=== PATIENT | male | born 1990 | race Caucasian/White ===

== ENCOUNTER 2017-09-16 08:51 | Emergency (ER) | payer OTHER ==
[~2017-09-16 08:51] MED LIST: CIPR2.5D14 OP; CLON-327 PO; LAMO100T5 PO; QUET25TA PO
[2017-09-16] MEDS ORDERED: KETOROLAC 15 MG/ML VIAL IVP ONE (09:15)
[2017-09-16] MEDS ORDERED: diphenhydrAMINE 50 MG/ML VIAL IVP ONE (09:15)
[2017-09-16] MEDS ORDERED: METOCLOPRAMIDE 10 MG/2 ML SDV IVP ONE (09:15)
--- NOTE | 2017-09-16 09:35 | ER Report ---
History and Physical Time Seen By MD: 09:12 Hx. of Stated Complaint: PATIENT STATES THAT ABOUT 0830 THE PATIENT HAD A HEAD ACHE AND THAT HIS LEFT EYE "ACTED LIKE SOMEONE SHINED A LIGHT IN IT"; PATIENT TOOK SOME ASPRIN AND THEN HIS LEFT ARM WENT NUMB WELL HIS MOUTH. HPI/ROS CHIEF COMPLAINT: headache HISTORY OF PRESENT ILLNESS: Pt had sudden onset of crump at 0830 while working on a car; was not significantly exerting himself and not exposed to fumes. CRUMP began behind l eye; pt also c/o l arm numbness that has resolved and l side of tongue numbness that persists. Pt has sig hx of migraines, TBI in 2009-, but as far as he knows, has not had imaging of head. States this is different from migraines. CRUMP is gradually improving, but persists at 7/10. Worse with light, no sig relieving factors REVIEW OF SYSTEMS: Constitutional: No fever, no chills. Eyes: No discharge. ENT: No sore throat. Cardiovascular: No chest pain, no palpitations. Respiratory: No cough, no shortness of breath. Gastrointestinal: No abdominal pain, no vomiting. Genitourinary: No hematuria. Musculoskeletal: No back pain. Skin: No rashes. Neurological: as above Remainder of the 14 system rev: Yes Allergies: Coded Allergies: coconut (Verified Allergy, Severe, throat swelling., 09/16/17) oxycodone (Verified Allergy, Unknown, 09/16/17) Home Meds No Active Prescriptions or Reported Meds Past Medical/Surgical History hx tbi in [place], hx migraines, ptsd, bipolar Reviewed Nurses Notes: Yes Hx Smoking: No Smoking Status: Former Smoker Hx Substance Use Disorder: No Hx Alcohol Use: Yes (occ) Constitutional Vital Sign - Last 24 Hours 09/16/17 09/16/17 09/16/17 09/16/17 08:55 08:56 09:00 09:21 Temp 97.9 Pulse 76 73 Resp 18 B/P (MAP) 121/91 121/91 (101) 119/94 (102) Pulse Ox 96 96 O2 Delivery Room Air 09/16/17 09/16/17 09:30 09:51 Pulse 81 B/P (MAP) 115/73 (87) Pulse Ox 94 Physical Exam General Appearance: The patient is alert, has no immediate need for airway protection and no signs of toxicity. in room with lightd dimmed Eyes: Pupils equal and round no pallor or injection; no nystagmus ENT, Mouth: Mucous membranes are moist. Respiratory: There are no retractions, lungs are clear to auscultation. Cardiovascular: Regular rate and rhythm. no m/r/g Gastrointestinal: Abdomen is soft and non tender, no masses, bowel sounds normal. Neurological: alert, oriented x 4, cn ii-xii intact, 5/5 ms throughout, decreased lt touch RIGHT upper ext that pt states is at baseline from prior injuries. Oth nl lt touch throughout. Nl reflexes, nl fnf, no ddk, Skin: Warm and dry, no rashes. Musculoskeletal: Neck is supple non tender. Extremities are nontender, nonswollen and have full range of motion. [ ] DIFFERENTIAL DIAGNOSIS: After history and physical exam differential diagnosis was considered for headache including but not limited to subarachnoid hemorrhage , migraine headache, tension headache and infectious causes such as meningitis, pharyngitis and sinusitis. Medical Decision Making ED Course/Re-evaluation ED Course Pt's symptoms resolve completely with medications. CT ordered with low pretest prob for sah and obtained 1.5 hrs after crump. Discussed with pt that neg ct is 95% sensitive; pt understands and is comfortable with small remaining posttest prob. No sgs meningitis, encephalitis or other emergent etiology. Decision to Disposition Date: Sep 16, 2017 Decision to Disposition Time: 11:14 Depart Departure Latest Vital Signs Vital Signs Date Time Temp Pulse Resp B/P (MAP) Pulse Ox O2 Delivery O2 Flow Rate FiO2 09/16/17 09:51 81 94 09/16/17 09:30 115/73 (87) 09/16/17 08:55 97.9 18 Room Air Impression: Primary Impression: Headache Condition: Improved Disposition: HOME OR SELF-CARE New Scripts No Active Prescriptions or Reported Meds Patient Instructions: Acute Headache (ED) Additional Instructions: As we discussed, there remains a small, though unlikely, chance of a small bleed , given your symptoms. If you have concerning symptoms, please return immediately for any concerns. Problem Qualifiers Primary Impression: Headache Headache type: unspecified Headache chronicity pattern: acute headache Intractability: not intractable Qualified Codes: R51 - Headache ELIZABETH MARADIAGA MD Sep 16, 2017 09:35
--- NOTE | 2017-09-16 10:59 | RADIOLOGY IMAGING REPORT ---
FACILITY: [facility] - [place] PATIENT NAME: Wing Rose : 1990 MR: [id number] V: [id number] EXAM DATE: ORDERING PHYSICIAN: ELIZABETH MARADIAGA TECHNOLOGIST: Location: [facility] - [place] Patient: Wing Rose : 1990 Visit/Account:[id number] Date of Sevice: 09/16/2017 EXAMINATION: Head CT without intravenous contrast HISTORY: New onset headache TECHNIQUE: Contiguous axial images were obtained from the skull base to the vertex without intraven ous contrast. Sagittal and coronal reformatted images are also submitted. COMPARISON: None. FINDINGS: Brain volume: Normal. Ventricles: Normal. Acute ischemic changes: None. Hemorrhage: None. Masses / edema: None. Maya-white: Negative. White matter: Normal. Vessels: Negative. Extra-axial: Negative. Calvarium / scalp: Negative. Skull base / visualized face: Negative. Visualized sinuses / orbits: Negative. IMPRESSION: Normal noncontrast head CT without evidence of mass lesion, acute infarct or hemorrhage. Report Dictated By: Iraida Hughes MD at 09/16/2017 10:46 AM Report E-Signed By: Iraida Hughes MD at 09/16/2017 10:54 AM WSN:[id number]
[2017-09-16 11:00] VITALS: BP 104/71
== END 2017-09-16 11:23 | disposition home or self-care (01) ==
LOC: ER 08:55
DX: R51 Headache (principal)
CPT/HCPCS: 70450; 96374; 96375; 99284; J1200; J1885; J2765

== ENCOUNTER → 2018-05-09 | Outpatient (REF) | LOC: AUD 13:26 | PROVIDERS: ATTEND Internal Medicine | DX: Z01.12 Encounter for hearing conservation and treatment (principal) | CPT/HCPCS: 92552 ==

== ENCOUNTER 2018-06-22 16:36 | Emergency (ER) | payer BC, OTHER ==
--- NOTE | 2018-06-22 16:53 | ER Report ---
History and Physical Time Seen By MD: 16:53 Hx. of Stated Complaint: STARTED FEELING LIGHT HEADED AT 10AM AFTER LIGHTING A TIRE, HAVING LOWER ABDOMINAL PAIN, NAUSEA, CHILLS, AND URINARY FREQUENCY. STATES HE FEELS LIKE HE NEEDS TO USE THE BATHROOM BUT IS UNABLE TO GO HPI/ROS CHIEF COMPLAINT: Abdominal pain HISTORY OF PRESENT ILLNESS: 28-year-old male patient presents to emergency room with complaint of abdominal pain. Patient states that he was at work today and was lifting a tire. He states that while he was lifting a tire he developed pain down around the umbilicus. He states the pain has persisted all day. He states he also became very lightheaded, dizzy especially when he was driving and nauseous. Patient states he did have some alcohol last night, however he did not feel intoxicated this morning or hung over. Patient states he did try to eat at lunch was not able to eat secondary to nausea. Patient states he has had quite a lot of coffee to stay to drink but has not had more than a glass of water. REVIEW OF SYSTEMS: Respiratory: No cough, no dyspnea. Cardiovascular: No chest pain, no palpitations. Gastrointestinal: As noted above Musculoskeletal: No back pain. 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 Patient denies any surgical history. Reviewed Nurses Notes: Yes Hx Smoking: No Smoking Status: Former Smoker Hx Substance Use Disorder: No Hx Alcohol Use: Yes (occ) Constitutional Vital Sign - Last 24 Hours 06/22/18 06/22/18 06/22/18 06/22/18 16:42 16:42 17:06 17:36 Temp 98.3 Pulse 79 71 67 Resp 18 B/P (MAP) 113/81 (92) 113/81 Pulse Ox 96 93 93 O2 Delivery Room Air 06/22/18 06/22/18 18:06 18:20 Pulse 69 B/P (MAP) 113/81 (92) Pulse Ox 92 Physical Exam General Appearance: The patient is alert, has no immediate need for airway protection and no current signs of toxicity. Respiratory: Chest is non tender, lungs are clear to auscultation. Cardiac: regular rate and rhythm Gastrointestinal: Abdomen is soft and tender in the periumbilical region, no masses, bowel sounds normal. Musculoskeletal: Neck: Neck is supple and non tender. Extremities have full range of motion and are non tender. Skin: No rashes or lesions. DIFFERENTIAL DIAGNOSIS: After history and physical exam differential diagnosis was considered for abdominal pain including but not limited to appendicitis, cholecystitis, gastritis and urinary tract infection. Medical Decision Making Data Points Result Diagram: 06/22/18 1650 06/22/18 1650 Laboratory Hematology Test 06/22/18 16:38 06/22/18 16:50 Urine Color Yellow Urine Clarity Clear Urine pH 6.0 pH (4.8-9.5) Urine Specific [place] 1.026 Urine Protein Negative mg/dL (NEGATIVE) Urine Glucose (UA) Negative mg/dL (NEGATIVE) Urine Ketones Negative mg/dL (NEGATIVE) Urine Blood Negative (NEGATIVE) Urine Nitrite Negative (NEGATIVE) Urine Bilirubin Negative (NEGATIVE) Urine Urobilinogen 2.0 mg/dL (0.2-1.9) Urine Leukocyte Esterase Negative (NEGATIVE) Urine RBC 1 /HPF (0-2/HPF) Urine WBC 1 /HPF (0-5/HPF) Urine Squamous Epithelial Cells None /LPF (</=FEW) Urine Bacteria Negative /HPF (NONE-FEW) Urine Mucus None /HPF (NONE-FEW) Red Blood Count 5.05 M/uL (4.00-5.60) Mean Corpuscular Volume 90.0 fL (80.0-96.0) Mean Corpuscular Hemoglobin 31.0 pg (26.0-33.0) Mean Corpuscular Hemoglobin Concent 34.4 g/dL (32.0-36.0) Red Cell Distribution Width 13.0 % (11.5-14.5) Mean Platelet Volume 7.9 fL (7.2-11.1) Neutrophils (%) (Auto) 61.7 % (39.4-72.5) Lymphocytes (%) (Auto) 30.8 % (17.6-49.6) Monocytes (%) (Auto) 6.2 % (4.1-12.4) Eosinophils (%) (Auto) 0.5 % (0.4-6.7) Basophils (%) (Auto) 0.8 % (0.3-1.4) Nucleated RBC Relative Count (auto) 0.0 /100WBC Neutrophils # (Auto) 3.3 K/uL (2.0-7.4) Lymphocytes # (Auto) 1.6 K/uL (1.3-3.6) Monocytes # (Auto) 0.3 K/uL (0.3-1.0) Eosinophils # (Auto) 0.0 K/uL (0.0-0.5) Basophils # (Auto) 0.0 K/uL (0.0-0.1) Nucleated RBC Absolute Count (auto) 0.00 K/uL Sodium Level 138 mmol/L (137-145) Potassium Level 3.5 mmol/L (3.5-5.0) Chloride Level 103 mmol/L (98-107) Carbon Dioxide Level 26 mmol/L (22-30) Blood Urea Nitrogen 13 mg/dl (9-21) Creatinine 0.90 mg/dl (0.66-1.25) Glomerular Filtration Rate Calc > 60.0 Random Glucose 95 mg/dl (75-110) Calcium Level 9.4 mg/dl (8.4-10.2) Total Bilirubin 0.6 mg/dl (0.2-1.3) Aspartate Amino Transf (AST/SGOT) 50 U/L (0-35) Alanine Aminotransferase (ALT/SGPT) 74 U/L (0-56) Alkaline Phosphatase 40 U/L (0-126) C-Reactive Protein < 0.5 mg/dl (<1.0) Total Protein 7.8 g/dl (6.3-8.2) Albumin 4.9 g/dl (3.5-5.0) Amylase Level 66 U/L (0-110) Lipase 57 U/L (23-300) Chemistry Test 06/22/18 16:38 06/22/18 16:50 Urine Color Yellow Urine Clarity Clear Urine pH 6.0 pH (4.8-9.5) Urine Specific [place] 1.026 Urine Protein Negative mg/dL (NEGATIVE) Urine Glucose (UA) Negative mg/dL (NEGATIVE) Urine Ketones Negative mg/dL (NEGATIVE) Urine Blood Negative (NEGATIVE) Urine Nitrite Negative (NEGATIVE) Urine Bilirubin Negative (NEGATIVE) Urine Urobilinogen 2.0 mg/dL (0.2-1.9) Urine Leukocyte Esterase Negative (NEGATIVE) Urine RBC 1 /HPF (0-2/HPF) Urine WBC 1 /HPF (0-5/HPF) Urine Squamous Epithelial Cells None /LPF (</=FEW) Urine Bacteria Negative /HPF (NONE-FEW) Urine Mucus None /HPF (NONE-FEW) White Blood Count 5.3 k/uL (4.5-11.0) Red Blood Count 5.05 M/uL (4.00-5.60) Hemoglobin 15.6 g/dL (14.0-18.0) Hematocrit 45.5 % (42.0-52.0) Mean Corpuscular Volume 90.0 fL (80.0-96.0) Mean Corpuscular Hemoglobin 31.0 pg (26.0-33.0) Mean Corpuscular Hemoglobin Concent 34.4 g/dL (32.0-36.0) Red Cell Distribution Width 13.0 % (11.5-14.5) Platelet Count 220 K/uL (150-450) Mean Platelet Volume 7.9 fL (7.2-11.1) Neutrophils (%) (Auto) 61.7 % (39.4-72.5) Lymphocytes (%) (Auto) 30.8 % (17.6-49.6) Monocytes (%) (Auto) 6.2 % (4.1-12.4) Eosinophils (%) (Auto) 0.5 % (0.4-6.7) Basophils (%) (Auto) 0.8 % (0.3-1.4) Nucleated RBC Relative Count (auto) 0.0 /100WBC Neutrophils # (Auto) 3.3 K/uL (2.0-7.4) Lymphocytes # (Auto) 1.6 K/uL (1.3-3.6) Monocytes # (Auto) 0.3 K/uL (0.3-1.0) Eosinophils # (Auto) 0.0 K/uL (0.0-0.5) Basophils # (Auto) 0.0 K/uL (0.0-0.1) Nucleated RBC Absolute Count (auto) 0.00 K/uL Glomerular Filtration Rate Calc > 60.0 Calcium Level 9.4 mg/dl (8.4-10.2) Total Bilirubin 0.6 mg/dl (0.2-1.3) Aspartate Amino Transf (AST/SGOT) 50 U/L (0-35) Alanine Aminotransferase (ALT/SGPT) 74 U/L (0-56) Alkaline Phosphatase 40 U/L (0-126) C-Reactive Protein < 0.5 mg/dl (<1.0) Total Protein 7.8 g/dl (6.3-8.2) Albumin 4.9 g/dl (3.5-5.0) Amylase Level 66 U/L (0-110) Lipase 57 U/L (23-300) Urinalysis Test 06/22/18 16:38 Urine Color Yellow Urine Clarity Clear Urine pH 6.0 pH (4.8-9.5) Urine Specific [place] 1.026 Urine Protein Negative mg/dL (NEGATIVE) Urine Glucose (UA) Negative mg/dL (NEGATIVE) Urine Ketones Negative mg/dL (NEGATIVE) Urine Blood Negative (NEGATIVE) Urine Nitrite Negative (NEGATIVE) Urine Bilirubin Negative (NEGATIVE) Urine Urobilinogen 2.0 mg/dL (0.2-1.9) Urine Leukocyte Esterase Negative (NEGATIVE) Urine RBC 1 /HPF (0-2/HPF) Urine WBC 1 /HPF (0-5/HPF) Urine Squamous Epithelial Cells None /LPF (</=FEW) Urine Bacteria Negative /HPF (NONE-FEW) Urine Mucus None /HPF (NONE-FEW) EKG/Imaging Imaging EXAMINATION: CT abdomen with IV contrast CT pelvis with IV contrast HISTORY: Abdominal pain. TECHNIQUE: Spiral scan was through the abdomen and pelvis during injection of nonionic iodinated intravenous contrast. Sagittal and coronal reformatted images are also submitted. One of the following dose optimization techniques was utilized in the performance of this exam: Automated exposure control; adjustment of the mA and/or kV according to the patient's size; or use of an iterative reconstruc tion technique. Specific details can be referenced in the facility's radiology CT exam operational policy. CONTRAST: 75 mL of IV Isovue-370 COMPARISON: None available. FINDINGS: Lower chest: Negative. Liver / biliary: Negative. Pancreas: Negative. Spleen: Negative. Adrenal glands: Negative. Kidneys: Negative. Pelvic structures: Negative. Bowel: Normal appendix. Otherwise negative. Peritoneum / retroperitoneum / mesenteries: Negative. Vessels: Negative. Lymph nodes: Negative. Musculoskeletal / Body wall: Negative. IMPRESSION: No acute abnormality in the abdomen or pelvis. Report Dictated By: Ranulfo Meadows MD at 06/22/2018 5:48 PM Report E-Signed By: Ranulfo Meadows MD at 06/22/2018 5:53 PM ED Course/Re-evaluation ED Course A CBC, CMP, urinalysis, CT scan of the abdomen and pelvis were done. An IV was started, patient received 4 mg Zofran as well as 1 L of normal saline. CT scan of the abdomen and pelvis showed no acute findings. Labs were unremarkable. Patient did have a slightly elevated AST and ALT. I believe is likely secondary to the alcohol consumption the night before. With him having alcohol last night as well as not much water today with lots of coffee I believe the patient likely has dehydration which exacerbated the lightheadedness, and nausea. Patient did feel significantly improved following liter of normal saline as well as Zofran. We will go ahead and discharge patient home at this time. We will send in a prescription of Zofran to help with the nausea and vomiting. He is to get plenty of rest. He is to return to emergency room if condition worsens. Patient verbalized understanding and agreement with plan. Decision to Disposition Date: June 22, 2018 Decision to Disposition Time: 18:07 Depart Departure Latest Vital Signs Vital Signs Date Time Temp Pulse Resp B/P (MAP) Pulse Ox O2 Delivery O2 Flow Rate FiO2 06/22/18 18:20 113/81 (92) 06/22/18 18:06 69 92 06/22/18 16:42 98.3 18 Room Air Impression: Primary Impression: Abdominal pain Additional Impression: Dehydration Condition: Improved Disposition: HOME OR SELF-CARE New Scripts Ondansetron 4 Mg Odt (ONDANSETRON 4 MG ODT) 4 Mg Tab.rapdis 4 MG PO Q6H PRN for NAUSEA/VOMITING, #20 TAB Prov: SHORTY HERNANDEZ 06/22/18 Patient Instructions: Abdominal Pain (ED), Dehydration (ED) Additional Instructions: Increase fluid intake. Get plenty of rest. You may continue with coffee consumption in the morning, but include some water with that to help prevent dehydration. Limit activity by pain. You may return to full duty at work. Problem Qualifiers Primary Impression: Abdominal pain Abdominal location: periumbilical Qualified Codes: R10.33 - Periumbilical pain SHORTY HERNANDEZ June 22, 2018 16:53
[2018-06-22] MEDS ORDERED: ONDANSETRON 4 MG/2 ML VIAL IVP ONE (17:00)
[2018-06-22] MEDS ORDERED: NS(*) 0.9% 1000 ML BAG 1,000 ML IV ONE (17:00)
[2018-06-22 17:11] LABS: PLATELET COUNT, AUTOMATED 220 K/uL (150-450)
[2018-06-22] MEDS ORDERED: IOPAMIDOL 76% 150 ML INFUS BTL 150 ML ONE (17:15)
--- NOTE | 2018-06-22 17:56 | RADIOLOGY IMAGING REPORT ---
FACILITY: [facility] PATIENT NAME: Wing Rose : 1990 MR: [id number] V: [id number] EXAM DATE: ORDERING PHYSICIAN: SHORTY HERNANDEZ TECHNOLOGIST: Location: [facility] - [place] Patient: Wing Rose : 1990 Visit/Account:[id number] Date of Sevice: 06/22/2018 EXAMINATION: CT abdomen with IV contrast CT pelvis with IV contrast HISTORY: Abdominal pain. TECHNIQUE: Spiral scan was through the abdomen and pelvis during injection of nonionic iodinated in travenous contrast. Sagittal and coronal reformatted images are also submitted. One of the following dose optimization techniques was utilized in the performance of this exam: Autom ated exposure control; adjustment of the mA and/or kV according to the patient's size; or use of an i terative reconstruction technique. Specific details can be referenced in the facility's radiology C T exam operational policy. CONTRAST: 75 mL of IV Isovue-370 COMPARISON: None available. FINDINGS: Lower chest: Negative. Liver / biliary: Negative. Pancreas: Negative. Spleen: Negative. Adrenal glands: Negative. Kidneys: Negative. Pelvic structures: Negative. Bowel: Normal appendix. Otherwise negative. Peritoneum / retroperitoneum / mesenteries: Negative. Vessels: Negative. Lymph nodes: Negative. Musculoskeletal / Body wall: Negative. IMPRESSION: No acute abnormality in the abdomen or pelvis. Report Dictated By: Ranulfo Meadows MD at 06/22/2018 5:48 PM Report E-Signed By: Ranulfo Meadows MD at 06/22/2018 5:53 PM WSN:[id number]
[2018-06-22] MEDS ORDERED: ONDA4TAB9 PO (18:06)
[2018-06-22 18:20] VITALS: BP 113/81
== END 2018-06-22 18:36 | disposition home or self-care (01) ==
LOC: ER 17:04
DX: R10.33 Periumbilical pain (principal); E86.0 Dehydration
CPT/HCPCS: 74177; 81001; 82150; 83690; 85025; 86140; 96361; 96374; 99284; J2405; J7030; Q9967; 82040; 82247; 82310; 82374; 82435; 82565; 82947; 84075; 84132; 84155; 84295; 84450; 84460; 84520